=== PATIENT | male | born 1960 | race Caucasian/White ===

== ENCOUNTER 2020-12-17 06:22 | Inpatient (IN) ==
[2020-12-17] MEDS ORDERED: CeFAZolin Syr 2,000MG/20 ML 2,000 MG/20 ML SYRINGE IVPB ONE (06:40)
[2020-12-17] MEDS ORDERED: Ringers Solution, Lactated 1,000 ML IVC SCH (06:45)
[2020-12-17] MEDS ORDERED: Acetaminophen IV 1,000 MG/100 ML BAG IVPB ONE (07:08)
[2020-12-17] MEDS ORDERED: *HR* Rocuronium Bromide 50 MG/5 ML VIAL ONE (07:15)
[2020-12-17] MEDS ORDERED: Lidocaine -MPF 2% 2 ML VIAL ONE (07:15)
[2020-12-17] MEDS ORDERED: Ondansetron 4 MG/2 ML VIAL ONE (07:15)
[2020-12-17] MEDS ORDERED: Lidocaine -MPF 4% 5 ML AMPUL ONE (07:16)
[2020-12-17] MEDS ORDERED: *HR* Midazolam HCl 2 MG/2 ML VIAL ONE (07:16)
[2020-12-17] MEDS ORDERED: *HR* Propofol 200 MG/20 ML VIAL IVP ONE (07:16)
[2020-12-17] MEDS ORDERED: *HR* FentaNYL (PF) 100 MCG/2 ML VIAL ONE (07:16)
[2020-12-17] MEDS ORDERED: Ondansetron 4 MG/2 ML VIAL IVP PRN ×2 (07:22→15:36)
[2020-12-17] MEDS ORDERED: *HR* HYDROmorphone PF 0.5 MG/0.5 ML SYRINGE IVP PRN (07:22)
[2020-12-17] MEDS ORDERED: *HR* Meperidine 25 MG/ML SYRINGE IVP PRN (07:22)
[2020-12-17] MEDS ORDERED: Heparin 1,000 UNITS/500 mL 500 ML ONE (07:27)
[2020-12-17] MEDS ORDERED: Albumin Human 5% 25.0 GM/500 ML IV.SOLN ONE (07:31)
[2020-12-17] MEDS ORDERED: Ketamine *HR* 500 MG/10 ML MDV ONE (07:31)
[2020-12-17] MEDS ORDERED: Dexmedetomidine HCl 400 MCG/100 ML MLS IVC ONE (07:31)
[2020-12-17 08:27] LABS: Basophils % 0.7 %; Eosinophils # 0.1 K/mcL (0.0-0.6); Eosinophils % 2.2 %; Hematocrit 44.9 % (37.5-50.1); Hemoglobin 15.4 g/dL (12.9-16.9); Immature Granulocytes % 0.3 % (0-4); Lymphocytes # 1.6 K/mcL (0.6-4.6); Lymphocytes % 27.2 %; Mean Corpuscular HGB Conc 34.3 g/dL (31.6-35.5); Mean Corpuscular Hemoglobin 31.4 pg (28.0-33.3); Mean Corpuscular Volume 91.6 fL (83.0-100.0); Mean Platelet Volume 10.7 fL (9.4-12.4); Monocytes # 0.5 K/mcL (0.0-1.3); Monocytes % 9.2 %; Neutrophils # 3.5 K/mcL (1.6-8.9); Platelet Count 201 K/mcL (140-400); Red Cell Distribution Width 13.3 % (11.5-14.5); Segmented Neutrophils % 60.4 %; White Blood Count 5.8 K/mcL (4.3-11.1)
[2020-12-17 08:42] LABS: BUN/Creatinine Ratio 17 (6-26); Blood Urea Nitrogen 13 mg/dL (8-23); Calcium 8.7 mg/dL (8.6-10.3); Carbon Dioxide 28 mEq/L (23-29); Chloride 105 mEq/L (98-107); Glucose 94 mg/dL (70-105); Osmolality,Calculated 284 (280-300); Potassium 3.9 mEq/L (3.5-5.1); Sodium 137 mEq/L (136-145); eGFR For African Americans > 60 (> 60); eGFR For Non-African Americans > 60 (> 60)
[2020-12-17] MEDS ORDERED: Ketorolac 30 MG/ML VIAL ONE (11:55)
[2020-12-17] MEDS ORDERED: *HR* HYDROMORPHONE 2 MG/ML VIAL ONE (12:09)
[2020-12-17] MEDS ORDERED: Sugammadex Sodium 200 MG/2 ML VIAL IV ONE (12:11)
[2020-12-17] MEDS ORDERED: Hyoscyamine SL 0.125 MG TAB.SUBL SL PRN (15:36)
[2020-12-17] MEDS ORDERED: *HR* Belladonna Alkaloids/Opium 30 MG RECTAL SUPPOSITORY RC PRN (15:36)
[2020-12-17] MEDS ORDERED: Acetaminophen 325 MG TABLET PO PRN (15:36)
[2020-12-17] MEDS ORDERED: Naloxone 0.4 MG/ML INJ IVP PRN (15:36)
[2020-12-17] MEDS: CeFAZolin 2 GM/120 ML BAG IVPB SCH ×2 (16:35→22:56)
[2020-12-17] MEDS: 0.9 % Sodium Chloride 1,000 ML IVC SCH (16:36)
[2020-12-18] MEDS: 0.9 % Sodium Chloride 1,000 ML IVC SCH ×2 (01:53→08:54)
[2020-12-18 01:57] LABS: Basophils % 0.1 %; Hematocrit 38.3 % (37.5-50.1); Immature Granulocytes % 0.4 % (0-4); Lymphocytes % 7.7 %; Mean Corpuscular HGB Conc 34.2 g/dL (31.6-35.5); Mean Corpuscular Hemoglobin 31.2 pg (28.0-33.3); Mean Corpuscular Volume 91.2 fL (83.0-100.0); Mean Platelet Volume 10.8 fL (9.4-12.4); Monocytes # 1.1 K/mcL (0.0-1.3); Monocytes % 8.9 %; Neutrophils # 10.5 K/mcL (1.6-8.9); Platelet Count 186 K/mcL (140-400); Red Cell Distribution Width 13.2 % (11.5-14.5); Segmented Neutrophils % 82.9 %
[2020-12-18 02:00] LABS: Hemoglobin 13.1 g/dL (12.9-16.9); White Blood Count 12.6 K/mcL (4.3-11.1)
[2020-12-18 02:19] LABS: BUN/Creatinine Ratio 14 (6-26); Blood Urea Nitrogen 10 mg/dL (8-23); Carbon Dioxide 24 mEq/L (23-29); Chloride 107 mEq/L (98-107); Glucose 107 mg/dL (70-105); Osmolality,Calculated 286 (280-300); Potassium 3.9 mEq/L (3.5-5.1); Sodium 138 mEq/L (136-145); eGFR For African Americans > 60 (> 60); eGFR For Non-African Americans > 60 (> 60)
[2020-12-18] MEDS: *HR* OxyCODONE/APAP 10/325 TABLET PO PRN (21:24)
[2020-12-19 07:07] VITALS: BP 123/89
[2020-12-19] MEDS: *HR* OxyCODONE/APAP 10/325 TABLET PO PRN (08:30)
== END 2020-12-19 09:31 | disposition home or self-care (01) | DRG 708 ==
LOC: SAMDAY 06:22 → 3ANU 15:11
PROVIDERS: ADMIT Urology; ATTEND Urology